=== PATIENT | female | born 2000 ===

== ENCOUNTER 2021-07-15 12:21 | Emergency (ER) | payer OTHER ==
[2021-07-15 17:05] LABS: Urine Bacteria FEW /hpf (None Seen); Urine Blood Negative /uL (Negative); Urine Mucus FEW (None Seen); Urine Specific Gravity 1.026 (1.001-1.035); Urine WBC 7 /hpf (0 - 5)
[2021-07-15] MEDS ORDERED: NITR-87 PO (19:52)
[2021-07-15 20:22] VITALS: BP 136/90
== END 2021-07-15 20:25 | disposition home or self-care (01) ==
LOC: ER 12:21
DX: S60.222A Contusion of left hand, initial encounter (principal); S80.01XA Contusion of right knee, initial encounter; S09.90XA Unspecified injury of head, initial encounter; N39.0 Urinary tract infection, site not specified; F12.10 Cannabis abuse, uncomplicated; V43.62XA Car passenger injured in collision with other type car in traffic accident, initial encounter; Y93.89 Activity, other specified; Y92.410 Unspecified street and highway as the place of occurrence of the external cause; Y99.8 Other external cause status
CPT/HCPCS: 70450; 72125; 73562; 81001; 81025